=== PATIENT | female | born 1970 | race Caucasian/White ===

== ENCOUNTER 2022-06-15 22:36 | Emergency (ER) | payer OTHER, SELFPAY ==
[2022-06-15 22:55] VITALS: BP 143/90; PULSE 97; RESP 18; TEMP 36.6; O2SAT 100
--- NOTE | 2022-06-16 00:42 | ED.EYEPROB ---
HPI - Eye Problem General Chief complaint: Eye Problems Stated complaint: right eye problem Time Seen by Provider: 06/15/22 23:55 Source: patient Mode of arrival: ambulatory Limitations: no limitations History of Present Illness HPI Narrative: This is a 52-year-old female that presents to the emergency department for feelings of foreign body in the right eye. Reports she thinks she has a contact stuck in the right eye. She was attempting to put them in for the first time today. Reports redness and tearing. Denies visual changes. Related Data Allergies Allergy/AdvReac Type Severity Reaction Status Date / Time No Known Allergies Allergy Unverified 09/10/20 14:19 Review of Systems Review of Systems: CONSTITUTIONAL: Denies fever EYES: Reports redness. Denies visual changes, or discharge. All systems reviewed & are unremarkable except as noted in HPI and below PMFSH Past Medical History Medical History (Updated 06/16/22 @ 00:44 by Clementine Penn PA-C) COPD (chronic obstructive pulmonary disease) Right tubal Tobacco use disorder, mild, abuse Surgical History Surgical History H/O oophorectomy R Family History Family History Mother Carcinoma of colon Social History Social History (Updated 09/10/20 @ 14:20 by Sandra Hyde) Social History: Single Smoking packs per day: 1 Smoking cigarettes per day: 20.0 Years smoked: 30 Smoking pack-years: 30.00 Smoking status: Current every day smoker Tobacco type: cigarettes Second hand tobacco smoke exposure: Yes Alcohol intake: current Drinks per week: 1 Substance use: never Substance use type: does not use Gender identity (if verbalized by the patient): Female Sexual Orientation (if Verbalized by the Patient): Straight or Heterosexual Exam Narrative: GENERAL: Well-appearing, well-nourished, and in no acute distress. HEAD: Normocephalic, atraumatic. EYES: PERRLA and EOMI. Right conjunctival injection. Eyelid everted, no foreign bodies noted. Positive fluorescein stain uptake with a small corneal abrasion noted EXTREMITIES: Normal range of motion. No edema. SKIN: Warm, dry, no rash. NEURO: No focal deficits. Alert and oriented x3. PSYCH: Normal mood and affect Course Vital Signs Vital signs: Vital Signs Temperature 97.9 F 06/15/22 22:55 Pulse Rate 97 06/15/22 22:55 Respiratory Rate 18 06/15/22 22:55 Blood Pressure 143/90 H 06/15/22 22:55 Pulse Oximetry 100 06/15/22 22:55 Oxygen Delivery Room Air 06/15/22 22:55 Temperature 97.9 F 06/15/22 22:55 Pulse Rate 97 06/15/22 22:55 Respiratory Rate 18 06/15/22 22:55 Blood Pressure 143/90 H 06/15/22 22:55 Pulse Oximetry 100 06/15/22 22:55 Oxygen Delivery Room Air 06/15/22 22:55 MDM - Eye Problem MDM Narrative Medical decision making narrative: Patient presents emergency department for feelings of foreign body in the eye. No foreign body noted on exam. She does have a small corneal abrasion. Will be started on topical antibiotics. Was instructed to have follow-up with her eye doctor. She was given warnings to return to the ER Critical Care Time Critical Care Time Critical Care Time: No Discharge Plan Discharge Clinical Impression: Corneal abrasion Qualifiers: Encounter type: initial encounter Laterality: right Qualified Code(s): S05.01XA - Injury of conjunctiva and corneal abrasion without foreign body, right eye, initial encounter Patient Disposition: Home, Self-Care Condition: Stable Instructions: Antibiotic Form, Corneal Abrasion (ED) Additional Instructions: Return to the emergency department if you experience fever, redness and swelling of your eye, vision changes, vomiting, or any other symptoms that are concerning to you Apply erythromycin ointment 4 times daily for the next 5 days
[2022-06-16] MEDS: ERYTHROMYCIN OPHTH OINTMENT 1 GM TUBE 1 APPLIC EACH EYE (01:03)
[2022-06-16 01:05] VITALS: BP 140/82; PULSE 90; RESP 18; O2SAT 98
== END 2022-06-16 01:07 | disposition home or self-care (01) ==
PROVIDERS: Emergency Provider Emergency Medicine; PCP Family Medicine
DX: S05.01XA Injury of conjunctiva and corneal abrasion without foreign body, right eye, initial encounter (principal); J44.9 Chronic obstructive pulmonary disease, unspecified; Z90.721 Acquired absence of ovaries, unilateral; F17.210 Nicotine dependence, cigarettes, uncomplicated; X58.XXXA Exposure to other specified factors, initial encounter
CPT/HCPCS: 99283; A9270